=== PATIENT | female | born 1960 | race Caucasian/White ===

== ENCOUNTER 2019-04-16 17:57 | Emergency (ER) | payer BC ==
--- NOTE | 2019-04-16 18:22 | ERPHSYRPT ---
- History of Present Illness Time Seen by Provider: 04/16/19 18:18 Source: patient Exam Limitations: no limitations Physician History: 59-year-old female came to the emergency room with fall on ice. She was trying to sober the small and density fell on her back and hit her head. She has developed goose Bump her occipital area of the skull, she denies any loss of consciousness or any other injury. No deformity noted. Occurred: just prior to arrival Reason for Fall: slipped (on ice) Injuries/Pain Location: head, lower extremity Loss of Consciousness: no loss of consciousness Severity of Pain-Max: none Severity of Pain-Current: none Modifying Factors: Improves With: nothing Associated Symptoms (Fall): denies symptoms Allergies/Adverse Reactions: gabapentin Allergy (Severe, Verified 04/16/19 18:27) morphine Allergy (Severe, Verified 04/16/19 18:27) Home Medications: Hctz/Triamterene 25/37.5 mg [Maxzide 25MG] 25 mg PO DAILY 04/09/16 [History] Lisinopril [Zestril] 2.5 mg PO DAILY 04/09/16 [History] Pantoprazole Sodium [Protonix] 40 mg PO DAILY 04/09/16 [History] Duloxetine HCl [Cymbalta] 20 mg PO DAILY 02/16/18 [History] Atorvastatin Calcium [Lipitor 20MG Tablet] 20 mg PO DAILY 04/16/19 [History] - Review of Systems Constitutional: No Fever, No Chills Eyes: No Symptoms Ears, Nose, & Throat: No Symptoms Respiratory: No Cough, No Dyspnea Cardiac: No Chest Pain, No Edema, No Syncope Abdominal/Gastrointestinal: No Abdominal Pain, No Nausea, No Vomiting, No Diarrhea Genitourinary Symptoms: No Dysuria Musculoskeletal: Fall, No Back Pain, No Neck Pain Skin: No Rash Neurological: No Dizziness, No Focal Weakness, No Sensory Changes Psychological: No Symptoms Endocrine: No Symptoms All Other Systems: Reviewed and Negative - Past Medical History Neurological History: No Pertinent History Cardiac History: High Cholesterol, Hypertension Respiratory History: No Pertinent History Endocrine Medical History: No Pertinent History Musculoskeletal History: No Pertinent History Other Medical History: 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), osteopenia B hips, L arm fx (as a child) - Nursing Vital Signs Nursing Vital Signs: Initial Vital Signs Temperature 98.9 F 04/16/19 18:17 Pulse Rate 74 04/16/19 18:17 Respiratory Rate 22 04/16/19 18:17 Blood Pressure 173/106 04/16/19 18:17 O2 Sat by Pulse Oximetry 98 04/16/19 18:17 Pain Scale Pain Intensity 5 - [place] Coma Score Best Eye Response ([place]ylvia): (4) open spontaneously Best Verbal Response ([place]): (5) oriented Best Motor Response ([place]): (6) obeys commands Sylvia Total: 15 - Physical Exam General Appearance: no apparent distress, alert Head Injury: no evidence of injury, tenderness (occipital scalp. scalp hematoma) Eye Exam: PERRL/EOMI ENT Exam: airway nml Neck Exam: normal inspection, No tenderness Respiratory/Chest Exam: normal breath sounds, No chest tenderness, No respiratory distress Cardiovascular Exam: normal heart sounds, regular rate/rhythm Gastrointestinal Exam: soft, No tenderness, No distention, No guarding, No ecchymosis Back Exam: normal inspection, No vertebral tenderness Extremity Exam: normal inspection, normal range of motion, pelvis stable, No deformities Neurologic Exam: alert, oriented x 3, cooperative, sensation nml, No motor deficits Skin Exam: normal color, warm, dry - Course Nursing assessment & vital signs reviewed: Yes - Radiology Exams Other X-ray Interpretation: Reviewed by me, Negative (scalp hematoma) Ordered Tests: Active Orders 24 hr Category Date Time Status SKULL COMPLETE (MIN 4 VIEWS) Stat Exams 04/16/19 Ordered - Progress Progress: improved, pain not gone completely Counseled pt/family regarding: diagnosis, need for follow-up, rad results - Departure Departure Disposition: Home Clinical Impression: Fall due to ice or snow Qualifiers: Encounter type: initial encounter Qualified Code(s): W00.9XXA - Unspecified fall due to ice and snow, initial encounter Scalp hematoma Qualifiers: Encounter type: initial encounter Qualified Code(s): S00.03XA - Contusion of scalp, initial encounter Condition: Stable Critical Care Time: No Referrals: Provider,Unknown [Primary Care Provider] - Instructions: Contusion (DC), Preventing Falls, Minor Head Injury (DC) Additional Instructions: Discharge/Care Plan DREW MARTIN was seen on 04/16/19 in the Emergency Room. The patient was counseled regarding Diagnosis,Lab results, Imaging studies, need for follow up and when to return to the Emergency Room. Prescriptions given: Discharge Note I have spoken with the patient and/or caregivers. I have explained the patient' s condition, diagnosis and treatment plan based on the information available to me at this time. I have answered the patient's and/or caregiver's questions and addressed any concerns. The patient and/or caregivers have as good understanding of the patient's diagnosis, condition and treatment plan as can be expected at this point. The vital signs have been stable. The patient's condition is stable and appropriate for discharge from the emergency department. The patient will pursue further outpatient evaluation with the primary care physician or other designated or consulting physician as outlined in the discharge instructions. The patient and/or caregivers are agreeable to this plan of care and follow-up instructions have been explained in detail. The patient and/or caregivers have received these instruction. The patient/and or caregivers are aware that any significant change in condition or worsening of symptoms should prompt an immediate return to this or the closest emergency department or call 911.
[2019-04-16 18:26] VITALS: O2SAT 98
[2019-04-16] MEDS ORDERED: TORAdol 30 mg Injection IM ONE (18:58)
[2019-04-16] MEDS ORDERED: TORAdol 30 mg Injection ONE (19:00)
[2019-04-16 19:32] VITALS: PULSE 60
[2019-04-16 19:43] VITALS: BP 124/81
--- NOTE | 2019-04-17 08:52 | XRAY ---
Indication: Pain following fall. Comparison: None 4 views of the skull obtained. No bony, articular, or soft tissue abnormalities.
== END 2019-04-16 19:43 | disposition home or self-care (01) ==
LOC: ED 17:57
DX: S00.03XA Contusion of scalp, initial encounter (principal); W00.9XXA Unspecified fall due to ice and snow, initial encounter; R51 Headache; Z79.899 Other long term (current) drug therapy; E78.00 Pure hypercholesterolemia, unspecified; I10 Essential (primary) hypertension
CPT/HCPCS: 70260; 96372; 99284; J1885

== ENCOUNTER 2020-03-07 19:50 | Emergency (ER) | payer BC ==
--- NOTE | 2020-03-07 19:52 | ERPHSYRPT ---
- History of Present Illness Time Seen by Provider: 03/07/20 19:52 Source: patient Exam Limitations: no limitations Physician History: Is a 60-year-old white female has a history of hypertension and presents to the emergency room with a headache as well as pain in the right hip and coccyx area after falling off of a ladder. She hit the back of her head. She does not recall all the events. Patient is not on any blood thinning medicines. She does present with an occipital hematoma. Patient has no pain complaints anywhere else. Patient does not want any narcotic medications. She will use Tylenol and Toradol Occurred: just prior to arrival Severity: mild Head Injury Location: occipital Method of Injury: fell Loss of Consciousness: brief (seconds) Associated Symptoms: headaches Allergies/Adverse Reactions: gabapentin Allergy (Severe, Verified 03/07/20 20:10) morphine Allergy (Severe, Verified 03/07/20 20:09) Vomiting Home Medications: Hctz/Triamterene 25/37.5 mg [Maxzide 25MG] 25 mg PO DAILY 04/09/16 [History] Pantoprazole Sodium [Protonix] 40 mg PO DAILY 04/09/16 [History] lisinopriL [Zestril] 2.5 mg PO DAILY 04/09/16 [History] Duloxetine HCl [Cymbalta] 20 mg PO DAILY 02/16/18 [History] Atorvastatin Calcium [Lipitor 20MG Tablet] 40 mg PO DAILY 04/16/19 [History] Hx Tetanus, Diphtheria Vaccination/Date Given: No Hx Influenza Vaccination/Date Given: Yes Travel Risk - International Travel Have you traveled outside of the country in past 3 weeks: No - Coronavirus Screening Are you exhibiting any of the following symptoms?: No Close contact with a COVID-19 positive Pt in past 14-21 Days: No - Review of Systems Constitutional: No Symptoms Eyes: No Symptoms Ears, Nose, & Throat: No Symptoms Respiratory: No Symptoms Cardiac: No Symptoms Abdominal/Gastrointestinal: No Symptoms Genitourinary Symptoms: No Symptoms Musculoskeletal: Fall, Injury (Right hip and coccyx) Neurological: Headache Psychological: No Symptoms Endocrine: No Symptoms Hematologic/Lymphatic: No Symptoms Immunological/Allergic: No Symptoms All Other Systems: Reviewed and Negative - Past Medical History Neurological History: No Pertinent History Cardiac History: High Cholesterol, Hypertension Respiratory History: No Pertinent History Endocrine Medical History: No Pertinent History Musculoskeletal History: No Pertinent History Psycho-Social History: Depression Other Medical History: 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), osteopenia B hips, L arm fx (as a child) - Past Surgical History Gastrointestinal: Cholecystectomy Musculoskeletal: Orthopedic Surgery Female Surgical History: Hysterectomy, Section - Social History Smoking Status: Never smoker Exposure to second hand smoke: No Drug Use: none Patient Lives Alone: Yes - Nursing Vital Signs Nursing Vital Signs: Initial Vital Signs Temperature 98.2 F 03/07/20 19:58 Pulse Rate 79 03/07/20 19:58 Respiratory Rate 18 03/07/20 19:58 Blood Pressure 153/95 03/07/20 19:58 O2 Sat by Pulse Oximetry 96 03/07/20 19:58 Pain Scale Pain Intensity 7 - [place] Coma Score Best Eye Response ([place]): (4) open spontaneously Best Verbal Response ([place]): (5) oriented Best Motor Response ([place]): (6) obeys commands Sylvia Total: 15 - Physical Exam General Appearance: no apparent distress, alert, anxiety Head Injury: contusions (Low region), swelling, No active bleeding, No Gómez's Sign, No raccoon eyes Eye Exam: bilateral eye: normal inspection, PERRL, EOMI, abnormal EOM ENT Exam: airway nml, nml ext.inspection, No evidence of ENT injury Neck Exam: supple, trachea midline, full range of motion, normal alignment, normal inspection, paraspinous muscle tender, pain on movement of neck (Bilateral paraspinous muscles) Cardiovascular/Respiratory Exam: chest non-tender, heart sounds normal, no respiratory distress Gastrointestinal/Abdominal Exam: soft, non tender, no distention, no mass, no guarding, no ecchymosis, no organomegaly, no pulsatile mass, normal bowel sounds Pelvic Exam: not done Rectal Exam: not done Back Exam: normal inspection, normal range of motion, No CVA tenderness, No vertebral tenderness Extremity Exam: non-tender, normal range of motion, normal inspection Mental Status Exam: alert, oriented x 3, 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 Exam: normal hearing, normal speech, PERRL Coordination/Gait Exam: normal finger to nose, normal gait Skin Exam: normal color, warm, dry Lymphatic Exam: No adenopathy SpO2 Interpretation: No normal O2 Delivery: Room Air - Course Nursing assessment & vital signs reviewed: Yes Ordered Tests: Active Orders 24 hr Category Date Time Status IV Insertion STAT Care 03/07/20 20:10 Active CERVICAL SPINE WO CONTRAST [CT] Stat Exams 03/07/20 20:06 Ordered HEAD WITHOUT CONTRAST [CT] Stat Exams 03/07/20 20:06 Ordered HIP UNI (2V) INCL PEL IF DONE Stat Exams 03/07/20 20:06 Ordered SACRUM AND COCCYX Stat Exams 03/07/20 Ordered Medication Summary Discontinued Medications Generic Name Dose Route Start Last Admin Trade Name Gisella PRN Reason Stop Dose Admin Acetaminophen 650 mg 03/07/20 21:06 Tylenol 325 Mg PO 03/07/20 21:07 STAT STA Acetaminophen Confirm 03/07/20 21:16 Tylenol 325 Mg Administered 03/07/20 21:17 Dose 650 mg .ROUTE .STK-MED ONE Ketorolac Tromethamine 30 mg 03/07/20 21:06 Toradol 30 Mg Injection IV 03/07/20 21:07 STAT ONE Ketorolac Tromethamine Confirm 03/07/20 21:15 Toradol 30 Mg Injection Administered 03/07/20 21:16 Dose 30 mg .ROUTE .STK-MED ONE - Progress Progress: improved, pain not gone completely, re-examined Progress Note: 03/07/20 21:17 CAT scan of the head without contrast shows a left posterior scalp hematoma otherwise negative CT of the head CAT scan of the cervical spine shows no acute fracture or subluxation. X-ray of the right hip and pelvis reveals no acute fracture or dislocation. X-ray of the sacrum and coccyx reveals a distal coccygeal fracture that is mildly displaced. 03/07/20 21:19 Patient states that she does not do well with narcotics and does not want any narcotics. Counseled pt/family regarding: diagnosis, need for follow-up, rad results - Departure Departure Disposition: Home Clinical Impression: Fall with injury, Closed coccygeal fracture Condition: Stable Critical Care Time: No Referrals: SAUL AGUAYO MD [Primary Care Provider] - Additional Instructions: Use Tylenol and ibuprofen for pain. Ice pack to tailbone approximately 20 mi nutes every hour for the next 48 hours. After that ice pack 2-3 times a day. May use a coccygeal cushion for comfort.
[2020-03-07] MEDS ORDERED: TORAdol 30 mg Injection IV ONE (21:06)
[2020-03-07] MEDS ORDERED: TYLENOL 325 MG PO STA (21:06)
[2020-03-07] MEDS ORDERED: TORAdol 30 mg Injection ONE (21:15)
[2020-03-07] MEDS ORDERED: TYLENOL 325 MG ONE (21:16)
[2020-03-07 21:30] VITALS: O2SAT 98
[2020-03-07 22:13] VITALS: BP 118/76; PULSE 74
--- NOTE | 2020-03-08 08:41 | XRAY ---
Indication: Pain following fall off ladder. Comparison: Lumbar spine May 14, 2011. 3 view sacrum/coccyx again demonstrates pelvic phleboliths and sacralized last lumbar segment. No new/acute bony, articular, or soft tissue abnormalities.
--- NOTE | 2020-03-08 08:44 | XRAY ---
Indication: Pain following fall off ladder. Comparison: None AP pelvis and 2 view right hip demonstrates pelvic phleboliths and sacralized last lumbar segment. No other bony, articular, or soft tissue abnormalities.
--- NOTE | 2020-03-08 08:44 | XRAY ---
Indication: Posterior head injury following fall off ladder. Multiple contiguous axial images obtained through the head without contrast. Comparison: None Small left posterior scalp hematoma. Otherwise normal appearing brain parenchyma, ventricles, and calvarium. Visualized paranasal sinuses and mastoid air cells are clear. Impression: Left posterior scalp hematoma. No underlying fracture or acute intracranial abnormalities.
--- NOTE | 2020-03-08 08:45 | XRAY ---
Indication: Posterior head injury following fall off ladder. Multiple contiguous axial images obtained through the cervical spine. Sagittal and coronal reformatted images obtained. Comparison: None Axial images negative for acute fracture, suspicious bony lesions, or spinal canal stenosis. Minimal/mild multilevel degenerative endplate spurring and bilateral degenerative facet hypertrophy. Sagittal and coronal reformatted images demonstrates lordotic straightening, positional versus paraspinal spasm. Vertebral body heights/disc spaces maintained. No acute compression fracture, subluxation, or jumped facet. Normal appearing craniocervical junction. Visualized noncontrasted soft tissues including lung apices are unremarkable. Impression: 1. Cervical lordotic straightening, positional versus paraspinal spasm. 2. Negative for acute fracture/subluxation. 3. Incidental multilevel degenerative changes.
== END 2020-03-07 22:12 | disposition home or self-care (01) ==
LOC: ED 19:50
DX: S32.2XXA Fracture of coccyx, initial encounter for closed fracture (principal); R51.9 Headache, unspecified; S00.93XA Contusion of unspecified part of head, initial encounter; M25.551 Pain in right hip; I10 Essential (primary) hypertension; E78.00 Pure hypercholesterolemia, unspecified; W11.XXXA Fall on and from ladder, initial encounter
CPT/HCPCS: 36000; 70450; 72125; 72220; 73502; 96374; 99284; J1885; A9270-GY